=== PATIENT | female | born 1995 | race Caucasian/White ===

== ENCOUNTER → 2021-12-29 | Emergency (ER) | payer OTHER ==
[~2021-12-29] MED LIST: AMOXICILLIN875 MG PO; BENADRYL 50MG C50 MG PO; FLEXERIL 10 MG10 MG PO; IBUPROFEN600 MG PO; IBUPROFEN800 MG PO; LODINE CAP 300300 MG PO; MEDROL DOSEPAK 24 MG PO; OMNICEF 300 MG300 MG PO; PREDNISONE 50 M50 MG PO; TAMIFLU75 MG PO; TESSALON PERLE100 MG PO; VENTOLIN HFA 66.7 GM INH; VIBRAMYCIN100 MG PO; ZITHROMAX500 MG PO; ZOFRAN ODT 4 MG4 MG PO
== END | disposition home or self-care (01) ==
LOC: ER1 03:27
DX: R51.9 Headache, unspecified (principal); G89.29 Other chronic pain; R11.2 Nausea with vomiting, unspecified; F17.290 Nicotine dependence, other tobacco product, uncomplicated
CPT/HCPCS: 96361; 96374; 96375; 99283; J1200; J1885; J2405